=== PATIENT | female | born 1995 | race Native Hawaiian/Other Pacific Islander ===

== ENCOUNTER 2018-07-06 11:08 | Emergency (ER) | payer MEDICAID ==
--- NOTE | 2018-07-06 13:10 | C.PDOC ---
History Of Present Illness 22 year old female presents to the emergency department with complaints of sore throat, fever, and being sick for the last two days. Patient states that she is able to swallow fluids but has pain upon swallowing. Time Seen by Provider: 07/06/18 11:39 Chief Complaint (Nursing): Fever History Per: Patient History/Exam Limitations: no limitations Onset/Duration Of Symptoms: Days (2) Current Symptoms Are (Timing): Still Present Location Of Pain: Throat Associated Symptoms: Fever, Sore Throat. denies: Cough Past Medical History Reviewed: Historical Data, Nursing Documentation, Vital Signs Vital Signs: Last Vital Signs Temp 102.6 F H 07/06/18 11:10 Pulse 131 H 07/06/18 11:10 Resp 20 07/06/18 11:10 BP Pulse Ox 99 07/06/18 11:10 - Medical History PMH: Asthma Surgical History: No Surg Hx Family History: States: No Known Family Hx - Social History Hx Tobacco Use: No Hx Alcohol Use: No Hx Substance Use: No - Immunization History Hx Tetanus Toxoid Vaccination: No Hx Influenza Vaccination: Yes Hx Pneumococcal Vaccination: No Review Of Systems Except As Marked, All Systems Reviewed And Found Negative. Constitutional: Positive for: Fever. Negative for: Chills ENT: Positive for: Throat Pain Cardiovascular: Negative for: Chest Pain, Palpitations Respiratory: Negative for: Cough, Shortness of Breath Gastrointestinal: Negative for: Nausea, Vomiting, Abdominal Pain, Diarrhea Physical Exam - Physical Exam Appears: Non-toxic, No Acute Distress Skin: Normal Color, Warm, Dry Head: Atraumatic, Normacephalic Eye(s): bilateral: Normal Inspection, PERRL, EOMI Ear(s): Bilateral: Normal Nose: Normal Oral Mucosa: Moist Throat: Erythema, Exudate, Other (uvula midline) Neck: Normal, Supple Chest: Symmetrical, No Tenderness Cardiovascular: Rhythm Regular, No Murmur Respiratory: Normal Breath Sounds, No Rales, No Rhonchi, No Wheezing Gastrointestinal/Abdominal: Soft, No Tenderness, No Guarding, No Rebound Extremity: Normal ROM Neurological/Psych: Oriented x3, Normal Speech, Normal Cognition ED Course And Treatment O2 Sat by Pulse Oximetry: 99 (RA) Pulse Ox Interpretation: Normal Medical Decision Making Medical Decision Making: Plan: Keflex 500mg PO Motrin 600mg PO Throat Culture POC Urine Pregnanc Rapid Strep Group Disposition Counseled Patient/Family Regarding: Studies Performed, Diagnosis, Need For Followup, Rx Given - Disposition Referrals: [facility] [Outside] Disposition: HOME/ ROUTINE Disposition Time: 13:06 Condition: STABLE Prescriptions: Cephalexin [Keflex] 500 mg PO QID #28 capsule Ibuprofen [Motrin] 600 mg PO TID #20 tab Instructions: Sore Throat, Adult (DC) Forms: [facility] (Irish), Work Excuse - Clinical Impression Clinical Impression: Acute pharyngitis - Scribe Statement The provider has reviewed the documentation as recorded by the Scribe (Dominick Saunders) Provider Attestation: All medical record entries made by the Scribe were at my direction and personally dictated by me. I have reviewed the chart and agree that the record accurately reflects my personal performance of the history, physical exam, medical decision making, and the department course for this patient. I have also personally directed, reviewed, and agree with the discharge instructions and disposition.
[2018-07-06 13:29] VITALS: BP 131/83; PULSE 103; RESP 18; TEMP 98.5; O2SAT 98
== END 2018-07-06 14:15 | disposition home or self-care (01) ==
LOC: C.ER 11:08
DX: J02.9 Acute pharyngitis, unspecified (principal)